=== PATIENT | male | born 1950 | race American Indian/Alaskan Native ===

== ENCOUNTER 2022-05-24 16:38 | Emergency (ER) | payer MEDICARE, OTHER ==
[2022-05-24 19:21] LABS: Basophils % (Auto) 0.6 % (0.0-1.8); Eosinophils # (Auto) 0.2 K/mm3 (0.0-0.4); Eosinophils % (Auto) 3.4 % (0.0-4.3); Hematocrit 29.1 % (35.5-45.6); Hemoglobin 9.6 gm/dl (11.8-15.2); Lymphocytes # (Auto) 0.7 K/mm3 (1.2-5.4); Lymphocytes % (Auto) 13.6 % (13.4-35.0); Mean Corpuscular HGB Conc 33 % (32-34); Mean Corpuscular Volume 90 fl (84-94); Monocytes # (Auto) 0.6 K/mm3 (0.0-0.8); Monocytes % (Auto) 12.3 % (0.0-7.3); Platelet Count 182 K/mm3 (140-440); Red Blood Count 3.24 M/mm3 (3.65-5.03); Red Cell Distribution Width 18.3 % (13.2-15.2)
[2022-05-24 19:39] LABS: Albumin 4.3 g/dL (3.9-5); Calcium 8.4 mg/dL (8.4-10.2)
[2022-05-24 20:03] LABS: Chol/HDL Ratio 4.25 %
--- NOTE | 2022-05-24 22:45 | Emergency Department Report ---
ED General Adult HPI - General Chief complaint: High BP Stated complaint: HBP/TAB Time Seen by Provider: 05/24/22 21:55 Source: patient Mode of arrival: Ambulatory Limitations: No Limitations - History of Present Illness Initial comments: 71 yo M with h/o ESRD on dialysis who has his fistula worked on today by her turntable man now here with chest pressure and elevated blood pressure. No cough, fever or chills reported. No other modifying or associated factors. Severity scale (0 -10): 0 - Related Data Home Medications Medication Instructions Recorded Confirmed Last Taken Dapagliflozin Propanediol (Nf) 5 mg PO 08/13/14 08/13/14 Unknown [Farxiga] Spironolact/Hydrochlorothiazid 1 each PO QDAY 08/13/14 08/13/14 Unknown [Spironolactone-Hctz 25-25 Tab] Allergies Allergy/AdvReac Type Severity Reaction Status Date / Time No Known Allergies Allergy Unverified 08/03/14 08:32 ED Review of Systems ROS: Stated complaint: HBP/TAB Other details as noted in HPI Comment: All other systems reviewed and negative Respiratory: shortness of breath Cardiovascular: chest pain ED Past Medical Hx - Past Medical History Hx Hypertension: Yes Hx Diabetes: Yes Hx Arthritis: Yes - Surgical History Past Surgical History?: Yes Additional Surgical History: AV graft to the YANIQUE - Social History Smoking Status: Never Smoker - Medications Home Medications: Home Medications Medication Instructions Recorded Confirmed Last Taken Type Dapagliflozin Propanediol (Nf) 5 mg PO 08/13/14 08/13/14 Unknown History [Farxiga] Spironolact/Hydrochlorothiazid 1 each PO QDAY 08/13/14 08/13/14 Unknown History [Spironolactone-Hctz 25-25 Tab] ED Physical Exam - General Limitations: No Limitations General appearance: alert, in no apparent distress - Head Head exam: Present: normal inspection - Eye Eye exam: Present: normal appearance Pupils: Present: normal accommodation - ENT ENT exam: Present: normal exam, normal orophraynx, mucous membranes moist - Neck Neck exam: Present: normal inspection, full ROM. Absent: tenderness - Respiratory Respiratory exam: Present: normal lung sounds bilaterally. Absent: respiratory distress, accessory muscle use - Cardiovascular Cardiovascular Exam: Present: regular rate, normal rhythm - GI/Abdominal GI/Abdominal exam: Present: soft, normal bowel sounds. Absent: distended, tenderness - Extremities Exam Extremities exam: Present: tenderness (to the right arm with fistula ), normal capillary refill. Absent: pedal edema - Back Exam Back exam: Present: normal inspection. Absent: tenderness - Neurological Exam Neurological exam: Present: alert, oriented X3 - Psychiatric Psychiatric exam: Present: normal affect, normal mood - Skin Skin exam: Present: warm, normal color ED Course Vital Signs 05/24/22 05/24/22 05/24/22 18:27 21:43 21:47 Temperature 98.5 F Pulse Rate 84 89 Respiratory 18 19 20 Rate Blood Pressure 191/89 Blood Pressure [Left] O2 Sat by Pulse 99 99 100 Oximetry 05/24/22 05/24/22 05/24/22 22:01 23:01 23:45 Temperature Pulse Rate 79 82 Respiratory 17 17 Rate Blood Pressure Blood Pressure 202/96 [Left] O2 Sat by Pulse 94 98 Oximetry - Reevaluation(s) Reevaluation #1: 05/25/22 01:38 pt report resolution in chest pressure by the time he was seen -- and wanted dinner-- patient labs reviewed and noted to be within normal limit considering his history of ESRD-- . Pt reassured with close follow with his PCP -- ED Medical Decision Making - Lab Data Result diagrams: 05/24/22 18:46 05/24/22 18:46 - EKG Data -: EKG Interpreted by Id EKG shows normal: sinus rhythm Rate: normal - EKG Data 05/25/22 01:37 Noted with normal sinus rhythm at a rate of 80 bpm with left atrial enlargement and this abnormal ECG without ST elevation or depression. - Medical Decision Making Here with chest pain/pressure with SOB though this is likely non cardiac but--differential could be but not limited to myocardial infarction, pulmonary embolism, costochondritis, anxiety, gastritis, GERD, pancreatitis, and or pyelonephritis--in order to rule out the above-- so will go ahead and order routine cardiopulmonary work-up that include troponin, EKG, chest x-ray, BNP, CKMB, and CBC, CMP and urinalysis for any correctable infectious process or electrolyte abnormality as a cause. Lab reviewed and noted's elevated BUN and creatinine are 32/9.2 with elevated troponin at 0.17 initially then decreased to 0.16 on the second repeat--this is consistent with history of acute on chronic renal insufficiency. Critical care attestation.: If time is entered above; I have spent that time in minutes in the direct care of this critically ill patient, excluding procedure time. ED Disposition Clinical Impression: SOB (shortness of breath), Non-cardiac chest pain, Hypercholesterolemia Acute on chronic kidney failure Qualifiers: Acute renal failure type: unspecified Chronic kidney disease stage: unspecified stage Qualified Code(s): N17.9 - Acute kidney failure, unspecified; N18.9 - Chronic kidney disease, unspecified Disposition: 01 HOME / SELF CARE / HOMELESS Is pt being admited?: No Does the pt Need Aspirin: No Condition: Stable Instructions: Food Basics for Chronic Kidney Disease, Shortness of Breath, Adult, [id number], Nonspecific Chest Pain, Adult, [id number], High Cholesterol, Chronic Kidney Disease, Adult, [id number], Preventing High Cholesterol Additional Instructions: It is very important that you call and follow-up with your nephrology/primary doctor in the next 3 to 5 days for progress Please do not hesitate to call or return to emergency room if your symptoms worsen Referrals: LOUISE JOHANSEN JR, MD [Primary Care Provider] - 3-5 Days Time of Disposition: 01:43
[2022-05-25 02:06] VITALS: BP 192/92
--- NOTE | 2022-05-25 11:18 | Electrocardiograph Report ---
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
== END 2022-05-25 03:10 | disposition home or self-care (01) ==
LOC: ED 16:38
DX: R07.9 Chest pain, unspecified (principal); R06.02 Shortness of breath; E78.00 Pure hypercholesterolemia, unspecified; I12.9 Hypertensive chronic kidney disease with stage 1 through stage 4 chronic kidney disease, or unspecified chronic kidney disease; E11.22 Type 2 diabetes mellitus with diabetic chronic kidney disease; N18.9 Chronic kidney disease, unspecified; M19.90 Unspecified osteoarthritis, unspecified site
CPT/HCPCS: 36415; 80053; 80061; 84484; 85025; 93005; 99283

== ENCOUNTER 2022-06-17 18:38 | Emergency (ER) | payer MEDICARE, OTHER ==
[2022-06-17] MEDS ORDERED: IPRATROPIUM 0.02% NEBU 2.5 ML IH ONE (20:49)
[2022-06-17] MEDS ORDERED: ALBUTEROL 2.5 MG/3 ML NEBU IH ONE (20:49)
--- NOTE | 2022-06-17 21:13 | XRay Report ---
CHEST 1 VIEW 06/17/2022 8:54 PM INDICATION / CLINICAL INFORMATION: Shortness of breath. COMPARISON: None available. FINDINGS: SUPPORT DEVICES: Right brachiocephalic stent. HEART / MEDIASTINUM: No significant abnormality. LUNGS / PLEURA: Streaky opacities in the right lung base, likely atelectasis. No pneumothorax. ADDITIONAL FINDINGS: No significant additional findings. IMPRESSION: 1. No acute findings. Signer Name: Dejon Magallanes MD Signed: 06/17/2022 9:08 PM Workstation Name: [employer]
[2022-06-17 21:38] LABS: Basophils % (Auto) 0.5 % (0.0-1.8); Eosinophils # (Auto) 0.1 K/mm3 (0.0-0.4); Eosinophils % (Auto) 1.6 % (0.0-4.3); Hematocrit 24.7 % (35.5-45.6); Hemoglobin 8.1 gm/dl (11.8-15.2); Lymphocytes # (Auto) 0.4 K/mm3 (1.2-5.4); Lymphocytes % (Auto) 5.6 % (13.4-35.0); Mean Corpuscular HGB Conc 33 % (32-34); Mean Corpuscular Volume 89 fl (84-94); Monocytes # (Auto) 0.5 K/mm3 (0.0-0.8); Monocytes % (Auto) 6.3 % (0.0-7.3); Platelet Count 201 K/mm3 (140-440); Red Blood Count 2.77 M/mm3 (3.65-5.03); Red Cell Distribution Width 19.2 % (13.2-15.2)
[2022-06-17 21:47] LABS: Creatine Kinase MB 3.9 ng/mL (0.0-4.0)
[2022-06-17 21:48] LABS: Albumin 4.2 g/dL (3.9-5); Calcium 7.7 mg/dL (8.4-10.2); INR 1.01 (0.87-1.13)
[2022-06-17] MEDS ORDERED: hydrALAZINE 20 MG/1 ML INJ IV ONE (22:05)
[2022-06-17 22:52] LABS: Chol/HDL Ratio 4.04 %
[2022-06-17 23:43] VITALS: BP 185/95
--- NOTE | 2022-06-17 23:53 | Emergency Department Report ---
ED Shortness of Breath HPI - General Chief Complaint: Dyspnea/Respdistress Stated Complaint: SOB Time Seen by Provider: 06/17/22 20:47 Source: patient, EMS Mode of arrival: Stretcher Limitations: No Limitations - History of Present Illness Initial Comments: SOB while receiving physical therapy earlier, placed on O2 by EMS and reports feeling better, O2 sat 98% Complaint: shortness of breath -: Gradual, hour(s) Worsens With: lying flat, exertion Known History Of: congestive heart failure Associated Symptoms: denies other symptoms Treatments Prior to Arrival: oxygen, bronchodilator - Related Data Home Oxygen Therapy: No Home Medications Medication Instructions Recorded Confirmed Last Taken Dapagliflozin Propanediol (Nf) 5 mg PO 08/13/14 08/13/14 Unknown [Farxiga] Spironolact/Hydrochlorothiazid 1 each PO QDAY 08/13/14 08/13/14 Unknown [Spironolactone-Hctz 25-25 Tab] Allergies Allergy/AdvReac Type Severity Reaction Status Date / Time No Known Allergies Allergy Unverified 08/03/14 08:32 ED Review of Systems ROS: Stated complaint: SOB Other details as noted in HPI Constitutional: denies: chills, fever Eyes: denies: eye pain, eye discharge, vision change ENT: denies: ear pain, throat pain Respiratory: denies: cough, shortness of breath, wheezing Cardiovascular: denies: chest pain, palpitations Endocrine: no symptoms reported Gastrointestinal: denies: abdominal pain, nausea, diarrhea Genitourinary: denies: urgency, dysuria Musculoskeletal: denies: back pain, joint swelling, arthralgia Skin: denies: rash, lesions Neurological: denies: headache, weakness, paresthesias Psychiatric: denies: anxiety, depression Hematological/Lymphatic: denies: easy bleeding, easy bruising ED Past Medical Hx - Past Medical History Hx Hypertension: Yes Hx Diabetes: Yes Hx Arthritis: Yes - Surgical History Additional Surgical History: AV graft to the YANIQUE - Social History Smoking Status: Never Smoker - Medications Home Medications: Home Medications Medication Instructions Recorded Confirmed Last Taken Type Dapagliflozin Propanediol (Nf) 5 mg PO 08/13/14 08/13/14 Unknown History [Farxiga] Spironolact/Hydrochlorothiazid 1 each PO QDAY 08/13/14 08/13/14 Unknown History [Spironolactone-Hctz 25-25 Tab] ED Physical Exam - General Limitations: No Limitations General appearance: alert, in no apparent distress - Head Head exam: Present: atraumatic, normocephalic - Eye Eye exam: Present: normal appearance - ENT ENT exam: Present: mucous membranes moist - Neck Neck exam: Present: normal inspection - Respiratory Respiratory exam: Present: normal lung sounds bilaterally, rales. Absent: respiratory distress - Cardiovascular Cardiovascular Exam: Present: regular rate, normal rhythm. Absent: systolic murmur, diastolic murmur, rubs, gallop - GI/Abdominal GI/Abdominal exam: Present: soft, normal bowel sounds - Rectal Rectal exam: Present: deferred - Extremities Exam Extremities exam: Present: normal inspection - Back Exam Back exam: Present: normal inspection - Neurological Exam Neurological exam: Present: alert, oriented X3 - Psychiatric Psychiatric exam: Present: normal affect, normal mood - Skin Skin exam: Present: warm, dry, intact, normal color. Absent: rash ED Course Vital Signs 06/17/22 06/17/22 06/17/22 18:45 22:13 23:37 Temperature 98.8 F Pulse Rate 92 H 90 Pulse Rate [ 92 H Bilateral Throughout] Respiratory 22 Rate Respiratory 21 Rate [Bilateral Throughout] Blood Pressure 185/95 Blood Pressure 200/113 [Left] O2 Sat by Pulse 98 Oximetry ED Medical Decision Making - Lab Data Result diagrams: 06/17/22 21:05 06/17/22 21:05 Critical care attestation.: If time is entered above; I have spent that time in minutes in the direct care of this critically ill patient, excluding procedure time. ED Disposition Clinical Impression: SOB (shortness of breath), CRF (chronic renal failure) Disposition: 01 HOME / SELF CARE / HOMELESS Is pt being admited?: No Does the pt Need Aspirin: No Condition: Stable
--- NOTE | 2022-06-19 13:58 | Electrocardiograph Report ---
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
== END 2022-06-18 01:25 | disposition home or self-care (01) ==
LOC: ED 18:38
DX: R06.02 Shortness of breath (principal); E11.22 Type 2 diabetes mellitus with diabetic chronic kidney disease; I12.9 Hypertensive chronic kidney disease with stage 1 through stage 4 chronic kidney disease, or unspecified chronic kidney disease; N18.9 Chronic kidney disease, unspecified
CPT/HCPCS: 36415; 71045; 80053; 80061; 82550; 82553; 83690; 83735; 84484; 85025; 85610; 93005; 94640; 96374; 99284; J0360; 94644